=== PATIENT | female | born 1995 | race Two or more races ===

== ENCOUNTER 2021-10-21 13:43 | Outpatient (CLI) | payer OTHER | END 2021-10-21 13:46 | disposition home or self-care (01) | LOC: MAMO-SONO 13:43 | PROVIDERS: ATTEND General Practice | DX: N64.4 Mastodynia (principal) ==

== ENCOUNTER 2022-02-11 08:41 | Emergency (ER) | payer OTHER ==
[~2022-02-11] VITALS: Ht 162.6 cm; Wt 86.2 kg
[2022-02-11] MEDS ORDERED: FLUCONAZOLE150 MG PO (09:00)
[2022-02-11] MEDS ORDERED: BACTRIM DS TAB1 EACH (09:01)
[2022-02-11] MEDS ORDERED: PYRIDIUM200 MG (09:01)
== END 2022-02-11 12:07 | disposition home or self-care (01) ==
LOC: ER 08:41
DX: N39.0 Urinary tract infection, site not specified (principal); Z91.013 Allergy to seafood